=== PATIENT | male | born 2000 | race Caucasian/White ===

== ENCOUNTER 2021-06-23 12:49 | Emergency (ER) | payer OTHER, SELFPAY ==
[2021-06-23 13:06] VITALS: BP 144/81; PULSE 87; RESP 18; TEMP 36.4; O2SAT 100
--- NOTE | 2021-06-23 13:10 | ED.SKABFB ---
HPI - Skin/Abscess/Foreign Bdy General Chief complaint: Wound/Laceration Stated complaint: lt hand laceration Time Seen by Provider: 06/23/21 13:10 Source: patient Mode of arrival: ambulatory Limitations: no limitations History of Present Illness HPI narrative: 21-year-old male presents with laceration to left hand. 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 Bleeding controlled. Tetanus up-to-date. Range of motion and distal neurovascular intact. All Systems reviewed and negative except as noted above. Related Data Allergies Allergy/AdvReac Type Severity Reaction Status Date / Time No Known Allergies Allergy Verified 06/23/21 13:28 Review of Systems Review of Systems: CONSTITUTIONAL: Denies fever, chills, or sweats. EYES: Denies visual changes, redness, or discharge. ENT: Denies rhinorrhea, congestion, sore throat, or otalgia. CARDIOVASCULAR: Denies chest pain, palpitations, or edema. RESPIRATORY: Denies cough or dyspnea. GASTROINTESTINAL: Denies abdominal pain, nausea, vomiting, or diarrhea. GENITOURINARY: Denies dysuria or hematuria. SKIN: Denies rash or itching. Laceration to left hand MUSCULOSKELETAL: Denies back pain, joint pain, or myalgia. NEUROLOGIC: Denies headache, numbness, or weakness. PSYCHIATRIC: Denies anxiety or depression. All other systems reviewed are negative, except as documented in HPI. PMFSH Comments At time of signature, agree with nursing past medical, surgical, social and family history. There is no relevant family history pertinent to the presenting complaint. Exam Narrative: GENERAL: This is a well-nourished, well-developed patient, in no apparent distress. HEAD: normocephalic, atraumatic. EYES: PERRL. Sclera clear/white. Vision is grossly intact. EARS: External ears normal, auditory canals clear and without drainage, TMs normal without perforation. Hearing grossly intact. NOSE: External nose normal with no obvious nasal discharge, nares without redness, no rhinorrhea. THROAT: Mucous membranes moist, posterior pharynx clear. NECK: Neck supple, non-tender without lymphadenopathy, masses or thyromegaly. CARDIOVASCULAR: Regular rate and rhythm without murmurs, gallops, or rubs. RESPIRATORY: Clear to auscultation. Breath sounds equal bilaterally. No wheezes, rales, or rhonchi. GASTROINTESTINAL: Abdomen soft, non-tender, nondistended. Bowel sounds are active. No hepato-splenomegaly, or palpable masses. No guarding. SKIN: warm, Dry, with no suspicious lesions or rash, good texture and turgor. 1 cm laceration to webbing between thumb and index finger. Bleeding controlled. NEURO: awake, alert, and oriented to person, place and time. There were no obvious focal neurologic abnormalities. EXTREMITIES: No joint tenderness, effusion, or edema noted. No calf tenderness. Negative Homans sign bilaterally. BACK: Nontender without deformity. No CVA tenderness. Course Course Level of Care: Express Care Visit Vital Signs Vital signs: Vital Signs Temperature 36.4 C 06/23/21 13:06 Pulse Rate 87 06/23/21 13:06 Respiratory Rate 18 06/23/21 13:06 Blood Pressure 144/81 H 06/23/21 13:06 Pulse Oximetry 100 06/23/21 13:06 Temperature 36.4 C 06/23/21 13:06 Pulse Rate 87 06/23/21 13:06 Respiratory Rate 18 06/23/21 13:06 Blood Pressure 144/81 H 06/23/21 13:06 Pulse Oximetry 100 06/23/21 13:06 Reviewed Procedures Laceration Laceration 1: Date: 06/23/21 Time: 13:20 Site: hand Side (If applicable): left Size (cm): 1 Description: linear and flap Depth: simple, single layer Local Anesthetic: lidocaine 1% Amount of anesthesia used (mL): 1.5 Pre-repair: wound explored and irrigated ====== Skin Level ====== Skin layer closed with: nylon Size (cm): 4-0 Number of sutures: 4 Technique: simple, interrupted ====== Subcutaneous Layer ======
== END 2021-06-23 13:32 | disposition home or self-care (01) ==
PROVIDERS: Emergency Provider Nurse Practitioner Family
DX: S61.412A Laceration without foreign body of left hand, initial encounter (principal); W45.8XXA Other foreign body or object entering through skin, initial encounter; Y99.0 Civilian activity done for income or pay
CPT/HCPCS: 12001; 99213; G0463

== ENCOUNTER 2021-06-30 14:49 | Emergency (ER) | payer OTHER, SELFPAY ==
[2021-06-30 14:57] VITALS: BP 147/81; PULSE 75; RESP 16; TEMP 37.2; O2SAT 100
--- NOTE | 2021-06-30 15:10 | ED.SKABFB ---
HPI - Skin/Abscess/Foreign Bdy General Chief complaint: Wound/Laceration Stated complaint: suture removal Time Seen by Provider: 06/30/21 14:51 Source: patient Mode of arrival: ambulatory Limitations: no limitations History of Present Illness HPI narrative: 21-year-old male presents to [facility] for suture removal. Patient reports he had 4 sutures placed to his left hand --near first webspace here 1 week ago. Patient reports that he had 4 sutures placed at 1 did fall out so he has 3 remaining sutures. Patient denies erythema, swelling, warmth, drainage. MD complaint: other (Suture removal ) Onset (ago): week(s) (1) Relieving factors: none Exacerbating factors: none Associated symptoms: denies other symptoms Treatments prior to arrival: none Related Data Home Medications Medication Instructions Recorded Confirmed No Home Medications 06/30/21 06/30/21 Allergies Allergy/AdvReac Type Severity Reaction Status Date / Time No Known Allergies Allergy Verified 06/30/21 14:53 Review of Systems Constitutional: Constitutional: Denies chills, Denies fatigue, Denies fever(s) and Denies weakness Respiratory: Respiratory: Denies chest congestion, Denies cough, Denies dyspnea and Denies wheezing Gastrointestinal: Gastrointestinal: Denies abdominal pain, Denies diarrhea, Denies nausea and Denies vomiting Integumentary/Breasts: Comments: 3 intact sutures noted to left first webspace PMFSH Comments At time of signature, I agree with nursing past medical, surgical, social and family history. There is no relevant family history pertinent to the presenting complaint. Exam Const: General: no acute distress Nutritional Appearance: well nourished Orientation/consciousness: patient oriented x3 Resp: Effort & Inspection: normal respiratory effort Auscultation: clear to auscultation bilaterally Cardio: Rate: regular rate Rhythm: regular rhythm Skin: General skin exam: normal color Rashes: no rashes Wounds: no wounds Other: 3 intact sutures noted to left first webspace. There is no erythema, swelling, warmth or signs of infection noted. Neuro: General: patient oriented x3, moves all extremities and no meningeal signs Speech: normal speech Extrem: General: normal to inspection and no pedal edema Psych: Appearance: grossly normal Affect: normal affect Thought content: Yes Normal thought content present Course Course Level of Care: Express Care Visit Vital Signs Vital signs: Vital Signs Temperature 37.2 C 03/11/22 14:57 Pulse Rate 75 06/30/21 14:57 Respiratory Rate 16 06/30/21 14:57 Blood Pressure 147/81 H 06/30/21 14:57 Pulse Oximetry 100 06/30/21 14:57 Temperature 37.2 C 06/30/21 14:57 Pulse Rate 75 06/30/21 14:57 Respiratory Rate 16 06/30/21 14:57 Blood Pressure 147/81 H 06/30/21 14:57 Pulse Oximetry 100 06/30/21 14:57 Procedures Other Procedure Procedure 1: Other Procedure: 3 intact sutures removed from left first webspace using 11 blade and forceps. Steri-Strips then applied to area. Wound edges are well approximated. No erythema, swelling, warmth, drainage or signs of infection noted. Patient tolerated well. MDM - Skin/Abscess/Foreign Bdy MDM Narrative Medical decision making narrative: Wound care discussed with patient. Patient agrees to allow Steri-Strips to fall off on their own. Patient agrees to monitor closely for signs and symptoms of infection. Differential Diagnosis Differential diagnosis: Likely abscess of skin or subcutaneous tissue and contact dermatitis Critical Care Time Critical Care Time Critical Care Time: No Discharge Plan Discharge Clinical Impression: Encounter for removal of sutures Patient Disposition: Home, Self-Care Condition: Stable Instructions: Stitches Removal (ED) Additional Instructions: Allow Steri-Strips to fall off on their own Monitor area closely for signs and symptoms of infection including redness,
== END 2021-06-30 15:17 | disposition home or self-care (01) ==
PROVIDERS: Emergency Provider Nurse Practitioner Family
DX: S61.412D Laceration without foreign body of left hand, subsequent encounter (principal); X58.XXXD Exposure to other specified factors, subsequent encounter
CPT/HCPCS: 99211; G0463